=== PATIENT | female | born 1990 | race Caucasian/White ===

== ENCOUNTER 2017-05-02 09:56 | Emergency (ER) | payer BC, OTHER ==
[~2017-05-02] VITALS: Ht 177.8 cm; Wt 63.0 kg
[2017-05-02 10:04] VITALS: TEMP 36.8; Ht 177.8 cm; Wt 63.0 kg
[2017-05-02] MEDS ORDERED: RBX750 PO (10:28)
[2017-05-02] MEDS ORDERED: AMPH20CA3 PO ×2 (10:28)
[2017-05-02] MEDS ORDERED: LEVO75TA PO (10:28)
[2017-05-02 10:39] VITALS: O2SAT 100
[2017-05-02] MEDS ORDERED: SODIUM CHLORIDE 0.9% 500ML 500 ML IV STA (10:41)
[2017-05-02] MEDS ORDERED: KETOROLAC TROMETHAMINE 30 MG/ML VIAL IV STA (10:41)
[2017-05-02 11:13] LABS: BASO % 0.3 %; BASO ABS # 0.02 K/uL (0-0.2); COMPLETE YES; EOS % 0.5 %; HEMATOCRIT 41.2 % (37-47); IG% 0.1 %; LYMPH % 31.6 %; LYMPH ABS # 2.37 K/uL (1.2-3.4); MEAN CELL VOLUME 84.1 fL (80-100); MEAN CORPUSCULAR HEMOGLOBIN 28.6 pg (25-34); MEAN PLATELET VOLUME 9.6 fL (7.4-10.4); MONO % 7.2 %; NEUT % 60.3 %; PLATELET COUNT 323 K/uL (130-400); WHITE BLOOD COUNT 7.49 K/uL (4.8-10.8)
[2017-05-02 11:18] LABS: BLOOD UREA NITROGEN 14 mg/dl (7-18); BUN/CREATININE RATIO 20.2 (10-20); CARBON DIOXIDE 26 mmol/L (21-32); CHLORIDE 105 mmol/L (98-107); CREATININE 0.69 mg/dl (0.60-1.20); GLUCOSE 130 mg/dl (70-99); SODIUM 138 mmol/L (136-145)
--- NOTE | 2017-05-02 11:21 | DIAGNOSTIC IMAGING REPORT ---
CHEST ONE VIEW PORTABLE HISTORY: 26 years-old Female Chest Pain acute atypical chest pain COMPARISON: None available TECHNIQUE: Portable upright AP view of the chest FINDINGS: Cardiomediastinal and hilar silhouettes are within normal limits. There is no pneumothorax, pleural effusion, focal airspace consolidation or overt pulmonary edema. The bones of the chest are grossly intact. IMPRESSION: No acute cardiopulmonary process. The above report was generated using voice recognition software. It may contain grammatical, syntax or spelling errors. Electronically signed by: Carlos Worthy M.D. 05/02/2017 11:20 AM Dictated Date/Time: 05/02/2017 11:19 AM
--- NOTE | 2017-05-02 12:33 | DIAGNOSTIC IMAGING REPORT ---
ULTRASOUND L VENOUS DOPP LOWER EXT UNILAT CLINICAL HISTORY: Left leg swelling COMPARISON STUDY: No previous studies for comparison. FINDINGS: Real-time and color flow Doppler imaging were performed. Flow was seen within the femoral, popliteal and calf veins with no intraluminal thrombus demonstrated. The saphenous vein is patent. IMPRESSION: No evidence of left lower extremity DVT. Electronically signed by: Robson Pedraza M.D. 05/02/2017 12:32 PM Dictated Date/Time: 05/02/2017 12:31 PM
[2017-05-02 13:30] VITALS: BP 142/91; PULSE 79; O2SAT 99
--- NOTE | 2017-05-02 16:43 | EMERGENCY ROOM VISIT NOTE ---
History Report prepared by [facility]: Glenn Rosa Under the Supervision of: Dr. Spenser Faith D.O. First contact with patient: 10:11 Chief Complaint: CHEST PAIN Stated Complaint: CP, SOB, RACING PULSE, CONFUSION History of Present Illness The patient is a 26 year old female who presents to the Emergency Room with complaints of a pressure-like centralized chest pain that began early this morning. She rates her pain a 3/10 in severity. The patient has had a history of heart palpitations that feel irregular for the past 5-10 years. However, she notes that her episodes have increased from twice a year to about once a month. These episodes last a maximum of 4 hours. She recently got checked by her PCP who adjusted her thyroid medications which helped her heart rate improve. She notes that she has also had about 2-3 months of left leg swelling as well. She has a history of lymphedema in her right leg which is hereditary. She denies any other medical problems. Early this morning, she woke up in a similar state, however she was experiencing chest pain too since 3am. She also became short of breath. She denies any jaw or arm pain. Patient denies cancer, diabetes, hypertension, hyperlipidemia, CAD, history of sudden at a young age, and smoking. Patient denies any recent trips, history of immobilization or recent surgery, prior history of DVT, hemoptysis, history of malignancy, history of smoking, or control/estrogen use. She denies any family history of atrial fibrillation or other cardiac rhythm disorders. Source of History: patient Onset: early this morning Position: chest (centralized) Symptom Intensity: 3/10 Quality: pressure Timing: constant Associated Symptoms: + SOB Note: She denies any arm pain or jaw pain. Review of Systems See HPI for pertinent positives & negatives. A total of 10 systems reviewed and were otherwise negative. Past Medical & Surgical Medical Problems: (1) Lymphedema (2) Thyroid disorder Family History Patient reports no known family medical history. Social History Smoking Status: Never Smoker Smokeless Tobacco Use: No Alcohol Use: none Drug Use: none Marital Status: Housing Status: lives with family Current/Historical Medications Scheduled Amphetamine-Dextroamphetamine 20MG (Adderall Xr 20MG), 20 CAP PO DAILY Amphetamine-Dextroamphetamine 20MG (Adderall Xr 20MG), 20 MG PO BID Levothyroxine Sodium (Synthroid), 75 MCG PO DAILY Scheduled PRN Methocarbamol (Methocarbamol), 750 MG PO DAILY PRN for BACK PAIN Allergies Coded Allergies: No Known Allergies (Unverified , 05/02/17) Physical Exam Vital Signs Date Time Temp Pulse Resp B/P (MAP) Pulse Ox O2 Delivery O2 Flow Rate FiO2 05/02/17 13:30 79 20 142/91 99 05/02/17 13:10 86 05/02/17 13:00 85 18 143/103 100 Room Air 05/02/17 12:00 138/95 100 Room Air 05/02/17 10:39 100 Room Air 05/02/17 10:34 100 Room Air 05/02/17 10:32 83 05/02/17 10:04 36.8 88 16 147/97 98 Room Air Physical Exam GENERAL: Sitting up in bed, alert, well appearing, well nourished, no distress, non-toxic EYE EXAM: normal conjunctiva OROPHARYNX: no exudate, no erythema, lips, buccal mucosa, and tongue normal and mucous membranes are moist NECK: supple, no nuchal rigidity, no adenopathy, non-tender LUNGS: Clear to auscultation. Normal chest wall mechanics HEART: no murmurs, S1 normal and S2 normal ABDOMEN: abdomen soft, non-tender, normo-active bowel sounds, no masses, no rebound or guarding. BACK: Back is symmetrical on inspection and there is no deformity, no midline tenderness, no CVA tenderness. SKIN: no rashes and no bruising UPPER EXTREMITIES: upper extremities are grossly normal. Radial pulses are equal bilaterally. LOWER EXTREMITIES: Left calf larger than right. NEURO EXAM: Normal sensorium, cranial nerves II-XII grossly intact, normal speech, no gross weakness of arms, no gross weakness of legs. Medical Decision & Procedures ER Provider Diagnostic Interpretation: Radiology results as stated below per my review and the radiologist's interpretation: ULTRASOUND L VENOUS DOPP LOWER EXT UNILAT CLINICAL HISTORY: Left leg swelling COMPARISON STUDY: No previous studies for comparison. FINDINGS: Real-time and color flow Doppler imaging were performed. Flow was seen within the femoral, popliteal and calf veins with no intraluminal thrombus demonstrated. The saphenous vein is patent. IMPRESSION: No evidence of left lower extremity DVT. Electronically signed by: Robson Pedraza M.D. 05/02/2017 12:32 PM Dictated Date/Time: 05/02/2017 12:31 PM CHEST ONE VIEW PORTABLE HISTORY: 26 years-old Female Chest Pain acute atypical chest pain COMPARISON: None available TECHNIQUE: Portable upright AP view of the chest FINDINGS: Cardiomediastinal and hilar silhouettes are within normal limits. There is no pneumothorax, pleural effusion, focal airspace consolidation or overt pulmonary edema. The bones of the chest are grossly intact. IMPRESSION: No acute cardiopulmonary process. The above report was generated using voice recognition software. It may contain grammatical, syntax or spelling errors. Electronically signed by: Carlos Worthy M.D. 05/02/2017 11:20 AM Dictated Date/Time: 05/02/2017 11:19 AM Laboratory Results 05/02/17 10:25 Red Blood Count 4.90, Mean Corpuscular Volume 84.1, Mean Corpuscular Hemoglobin 28.6, Mean Corpuscular Hemoglobin Concent 34.0, Mean Platelet Volume 9.6, Neutrophils (%) (Auto) 60.3, Lymphocytes (%) (Auto) 31.6, Monocytes (%) (Auto) 7.2, Eosinophils (%) (Auto) 0.5, Basophils (%) (Auto) 0.3, Neutrophils # (Auto) 4.51, Lymphocytes # (Auto) 2.37, Monocytes # (Auto) 0.54, Eosinophils # (Auto) 0.04, Basophils # (Auto) 0.02 05/02/17 10:25 Test 05/02/17 10:25 White Blood Count 7.49 K/uL (4.8-10.8) Red Blood Count 4.90 M/uL (4.2-5.4) Hemoglobin 14.0 g/dL (12.0-16.0) Hematocrit 41.2 % (37-47) Mean Corpuscular Volume 84.1 fL (80-100) Mean Corpuscular Hemoglobin 28.6 pg (25-34) Mean Corpuscular Hemoglobin Concent 34.0 g/dl (32-36) Platelet Count 323 K/uL (130-400) Mean Platelet Volume 9.6 fL (7.4-10.4) Neutrophils (%) (Auto) 60.3 % Lymphocytes (%) (Auto) 31.6 % Monocytes (%) (Auto) 7.2 % Eosinophils (%) (Auto) 0.5 % Basophils (%) (Auto) 0.3 % Neutrophils # (Auto) 4.51 K/uL (1.4-6.5) Lymphocytes # (Auto) 2.37 K/uL (1.2-3.4) Monocytes # (Auto) 0.54 K/uL (0.11-0.59) Eosinophils # (Auto) 0.04 K/uL (0-0.5) Basophils # (Auto) 0.02 K/uL (0-0.2) RDW Standard Deviation 39.2 fL (36.4-46.3) RDW Coefficient of Variation 13.0 % (11.5-14.5) Immature Granulocyte % (Auto) 0.1 % Immature Granulocyte # (Auto) 0.01 K/uL (0.00-0.02) D-Dimer < 190 ug/L FEU (0-500) Anion Gap 7.0 mmol/L (3-11) Est Creatinine Clear Calc Drug Dose 125.0 ml/min Estimated GFR () 141.2 Estimated GFR (Non- 121.8 BUN/Creatinine Ratio 20.2 (10-20) Calcium Level 9.0 mg/dl (8.5-10.1) Troponin I < 0.015 ng/ml (0-0.045) Thyroid Stimulating Hormone (TSH) 2.760 uIu/ml (0.300-4.500) Laboratory results per my review. Medications Administered Medications (Trade) Dose Ordered Sig/Marleny Route Start Time Stop Time Status Last Admin Dose Admin Sodium Chloride 500 ml @ 999 mls/hr Q31M STAT IV 05/02/17 10:41 05/02/17 11:11 DC 05/02/17 11:01 999 MLS/HR Ketorolac Tromethamine (Toradol Inj) 30 mg NOW STAT IV 05/02/17 10:41 05/02/17 10:46 DC 05/02/17 11:02 30 MG ECG Indication: chest pain Rate (beats per minute): 82 Rhythm: sinus rhythm Findings: other (Normal axis, poor baseline in V3) ED Course ED COURSE: Vital signs were reviewed and showed hypertension. The patients medical record was reviewed The above diagnostic studies were performed and reviewed. ED treatments and interventions as stated above. 1011: The patient was evaluated in room B5. A complete history and physical examination was performed. 1041: Ordered Toradol Inj 30 mg IV, Sodium Chloride 500 ml @ 999 mls/hr IV 1315: I reviewed the patient's monitor with the monitor delicatessen goods stock clerk. It showed nothing acute. 1321: Upon reevaluation, the patient is resting. I discussed my findings with the patient and she understands and agrees with the treatment plan. Based on the patients age, coexisting illnesses, exam and lab findings the decision to treat as an outpatient was made. The patient remained stable while under my care. The patient appeared well at the time of discharge. Medical Decision Differential diagnoses includes but is not limited to acute coronary syndrome, myocardial infarction, pericarditis, pulmonary embolus, aortic dissection, pneumonia, pneumothorax, musculoskeletal, shingles, esophageal. Patient is a 26-year-old female who presents to ER for feeling her heart race which has been intermittent since this morning. She notes that she has been getting this at least once or 2 times a week. She has been getting this for several years but normally it only occurs once every 6 months. She denies any syncope. Admits to chest pain since 3 AM this morning. Does have a history of thyroid disorder. She denies any history diabetes, hypertension, hyperlipidemia , CAD or sudden in her family at a young age. She has no PE risk factors with the exception of swelling in her left lower extremity. Duplex was negative. Troponin was negative with pain that has been present for greater than 6 hours. BMP was unremarkable. TSH is normal. D-dimer was negative. Chest x-ray was unremarkable. No ectopy found on Mondor although she did complain of palpitations. She was updated at bedside. Instructed to follow-up with PCP and/or cardiology for possible Holter monitor. Discussed with Pt concerning signs and symptoms to watch out for. Pt was instructed to follow up with their PCP and discussed with the patient their option to return to the ED at anytime for persistent or worsening symptoms. The appropriate anticipatory guidance and out-patient management, including indications for return to the emergency department, were explained at length to the patient and understood. Medication Reconcilliation Current Medication List: was personally reviewed by me Blood Pressure Screening Patient's blood pressure: Elevated blood pressure Blood pressure disposition: Elevated BP felt to be situational Impression Primary Impression: Heart palpitations Scribe Attestation The scribe's documentation has been prepared under my direction and personally reviewed by me in its entirety. I confirm that the note above accurately reflects all work, treatment, procedures, and medical decision making performed by me. Departure Information Dispostion Home / Self-Care Referrals Becky Traore M.D. (PCP) Frank Kwon M.D. Forms HOME CARE DOCUMENTATION FORM, IMPORTANT VISIT INFORMATION Patient Instructions Chest Pain - [facility], ED Palpitations, My [facility] Additional Instructions Please follow up with your primary care doctor with in the next 24 hours. Any worsening of your symptoms, please return to the ED immediately. This includes any fevers greater than 100.4, worsening pain, chest pain, shortness breath, persistent nausea, vomiting, unable to eat or drink, or any other concerning signs or symptoms from your standpoint. Please follow up with cardiology as listed below. You may benefit from a Holter monitor.
== END 2017-05-02 13:32 | disposition home or self-care (01) ==
LOC: C.EDB 09:59
DX: R00.2 Palpitations (principal); Q82.0 Hereditary lymphedema; E07.9 Disorder of thyroid, unspecified; Z79.899 Other long term (current) drug therapy

== ENCOUNTER 2020-06-27 08:46 | Observation (INO) ==
--- NOTE | 2020-06-22 10:31 | Anesthesiology Consultation ---
Date of Service June 22, 2020 Assessment & Plan (1) Encounter for pre-operative examination: COVID Status: As of 06/22 nurse assessment, patient denies travel to endemic area, known exposure/sick contacts, or symptoms of COVID19. Preoperative COVID19 testing completed on 06/21, results pending. S/P SARPE procedure 08/05/18 -- MAC 3, ETT 7.0 grade view II. Smooth induction. "Slow to emerge, extubated to 10LSFM." No complications noted in progress note. H/O PONV (with agitation and 'clawing at face') -- scop patch ordered for AM DOS. HCG AM DOS. Surgeon ordered coag and type and screen. If not done prior to DOS, will order for morning of. Chart Review Chart Review: Acceptable Risk for Surgery and Patient NOT seen in Pre Admission Testing History Surgery Operation Date: 06/27/20 11:55 Proposed Procedures p Lefort I Advancement - Edmar Taylor DMD Height/Weight Height: 5 ft 10 in Weight: 69.4 kg Allergies Allergy/AdvReac Type Severity Reaction Status Date / Time No Known Allergies Allergy Verified 06/22/20 10:11 hemp based lotions Allergy hives Uncoded 06/22/20 10:11 Medications Home Medications Medication Instructions Recorded Confirmed Last Taken acetaminophen [Tylenol Extra 500 mg PO DAILY PRN 07/17/18 06/22/20 08/04/18 21:30 Strength] dextroamphetamine-amphetamine 20 mg PO QAM 07/17/18 06/22/20 08/03/18 22:00 [Adderall XR] methocarbamol 750 mg PO QPM 07/17/18 06/22/20 08/04/18 21:30 tramadol 50 mg PO QPM PRN 07/17/18 06/22/20 08/04/18 21:30 nifedipine 30 mg tablet,extended 30 mg PO QAM 03/31/20 06/22/20 Unknown release Past Medical History Medical History (Updated 06/22/20 @ 10:26 by Sandeep Garces) Attention deficit disorder (ADD) Chronic back pain LUMBAR AREA- TO LEFT History of anesthesia reaction nausea, disorientation, clawing at face. History of bronchitis History of hypothyroidism Iron deficiency anemia Lupus Lymphedema RIGHT LEG-WEARS THIGH HIGH COMPRESSION STOCKING Maxillary hyperplasia Maxillary retrognathism Migraine Raynauds syndrome Past Family History Family History Father Family history of diabetes mellitus Diabetes Grandmother (Maternal) Breast cancer Cancer Mother Hypertension Past Surgical History Surgical History (Updated 06/22/20 @ 10:26 by Sandeep Garces) H/O knee surgery RIGHT ACL RECONSTRUCTION February 2012 H/O palate surgery SARPE 2018, Alex. MAC #3, ETT 7.0, grade view 2. No complications. History of adenoidectomy April 2002 History of bilateral tubal ligation History of section September 2015 History of surgery LeFort I osteotomy -- 07/2018 [facility] History of tonsillectomy April 2002 History of tooth extraction WISDOM TEETH Nausea and vomiting after administration of anesthetic agent Previous back surgery "IUD MIGRATED TO BACK-HAD TO BE REMOVED"-08/2016 History of PONV History of PONV Social History Smoking Status: Never smoker Do You Dip or Chew Tobacco: No Hx Alcohol Use: Yes Alcohol type: wine alcohol intake frequency: a few times a month Hx Substance Use: No substance use type: does not use
[~2020-06-27 08:46] MED LIST: LACTATED RINGER'S 1,000 ML IV SCH; LR 15ML/HR IV SCH; ceFAZolin 1000MG 1,000 MG/7.5 ML SYR IV SCH
[2020-06-27] MEDS ORDERED: SCOPOLAMINE 1.5 MG TDSY TD ONE (08:56)
[2020-06-27 09:34] LABS: Partial Thromboplastin Ratio 0.9; Partial Thromboplastin Time 25.8 Seconds (21.0-31.0); Prothrombin Time 10.3 Seconds (9.0-12.0)
[2020-06-27] MEDS ORDERED: MIDAZOLAM HCL 1 MG/ML 2ML VIAL ONE (09:43)
[2020-06-27] MEDS ORDERED: fentaNYL citrate 100 MCG/2 ML VIAL ONE (09:43)
--- NOTE | 2020-06-27 10:31 | History & Physical Bridge Note ---
Date of Service June 27, 2020 History & Physical Bridge Note I have examined the patient, reviewed the History & Physical and in the interval since the performance of the History & Physical I have noted the following changes of clinical significance: no changes noted. COVID neg OK for planned OG surgery today
[2020-06-27] MEDS ORDERED: TRIAMCINOLONE ACET 0.1% OINT 15 GM TUBE ONE (10:55)
[2020-06-27] MEDS ORDERED: ePHEDrine sulfate 50 MG/ML AMP IV PRN (10:55)
[2020-06-27] MEDS ORDERED: ATROPINE SULFATE 0.1 MG/ML 10ML SYR IV PRN (10:55)
[2020-06-27] MEDS ORDERED: ONDANSETRON INJ 2 MG/ML 2 ML VIAL IV PRN ×2 (10:55→14:45)
[2020-06-27] MEDS ORDERED: PROMETHAZINE HCL 6.25 MG in SODIUM CHLORIDE 0.9% 50 ML IV PRN (10:55)
[2020-06-27] MEDS ORDERED: CHLORHEXIDINE GLUCONATE 0.12% 480 ML ONE (10:58)
[2020-06-27] MEDS ORDERED: PHENYLEPHRINE 1% NA SPR 15 ML BTL STA (11:00)
[2020-06-27] MEDS ORDERED: LIDOCAINE 2%/EPINEPHRINE 1:100,000 1.8 ML CARTRIDGE ONE (11:01)
[2020-06-27] MEDS ORDERED: ONDANSETRON INJ 2 MG/ML 2 ML VIAL ONE (11:44)
[2020-06-27] MEDS ORDERED: LIDOCAINE HCL 2% 2 ML VIAL/AMP(20MG/ML) INFIL ONE (11:44)
[2020-06-27] MEDS ORDERED: ROCURONIUM BROMIDE 10 MG/ML 5 ML VIAL IV ONE (11:44)
[2020-06-27] MEDS ORDERED: DEXAMETHASONE SOD INJ 4 MG/ML VIAL ONE (11:44)
[2020-06-27] MEDS ORDERED: PROPOFOL IV EMULSION 10 MG/ML 20 ML VIAL IV ONE (11:44)
[2020-06-27] MEDS ORDERED: NEOSTIGMINE METHYLSULFATE 5 MG/5 ML SYR ONE (11:44)
[2020-06-27] MEDS ORDERED: GLYCOPYRROLATE 0.2 MG/ML VIAL ONE (11:44)
[2020-06-27] MEDS ORDERED: PHENYLEPHRINE 100MCG/ML 5ML SYR ONE (11:44)
[2020-06-27] MEDS ORDERED: LABETALOL HCL IV 5 MG/ML 20ML IV ONE (12:02)
[2020-06-27] MEDS ORDERED: SURGICEL ABSORB HEMOSTAT 2IN X 14IN TOP ONE (13:03)
--- NOTE | 2020-06-27 14:34 | Post Operative Brief Note ---
PG Immediate Post Op with CF Date of Surgery June 27, 2020 Pre & Post Diagnosis Operation Date: 06/27/20 10:15 Pre-Op Diagnosis: Maxillary Retrognathism Post-Op Diagnosis: Maxillary Retrognathism I identified the patient and participated in the time-out.: Yes Procedure Operation Date: 06/27/20 10:15 Actual Procedures p Lefort I Advancement(Not Applicable) - Edmar Taylor DMD Surgeon Edmar Taylor DMD Utility Lineman none Estimated Blood Loss 50 Findings Consistent with Post-Op Diagnosis
[2020-06-27] MEDS ORDERED: SODIUM CHLORIDE 0.65% NA SOLN 45 ML (OCEAN) PRN (14:45)
[2020-06-27] MEDS ORDERED: OXYMETAZOLINE 0.05% 30 ML BTL PRN (14:45)
[2020-06-27] MEDS ORDERED: LORazepam 1 MG/2 ML VIAL IV PRN (14:45)
[2020-06-27] MEDS: fentaNYL citrate 100 MCG/2 ML VIAL IV PRN ×4 (14:49→15:51)
--- NOTE | 2020-06-27 15:09 | Anesthesiology Progress Note ---
Date of Service June 27, 2020 Anesthesia Post Procedure Vital Signs Vital Signs: Temp Pulse Pulse Resp BP BP Pulse Ox 06/27/20 15:05 60 10 L 116/66 93 06/27/20 14:55 63 12 119/80 96 06/27/20 14:45 82 20 114/68 97 06/27/20 14:35 88 23 123/71 96 06/27/20 14:28 36.7 C 91 H 14 119/68 97 06/27/20 09:24 37 C 71 16 131/96 96 Transfer of Care Handoff Completed per policy Notes Mental Status: alert / awake / arousable Patient Amnestic to Procedure: Yes Nausea / Vomiting: adequately controlled Pain: adequately controlled Airway Patency, RR, SpO2: stable & adequate BP & HR: stable & adequate Hydration State: stable & adequate Anesthetic Complications: no major complications apparent
--- NOTE | 2020-06-27 15:37 | XRay Report ---
XR mandible <4V CLINICAL HISTORY: Status Post-Op Surgery AP Mandibular and Jaw View COMPARISON: None FINDINGS: Note is made of postoperative findings within the maxilla suggestive of maxillary advancem ent. Hardware is intact. There are no unexpected radiopaque foreign bodies. IMPRESSION: Postoperative findings, as described above. ACT 112: Negative or not required by law. Electronically signed by: Jacob So M.D. 06/27/2020 3:36 PM
[2020-06-27] MEDS ORDERED: ACETAMINOPHEN SUSP 160 MG/5 ML BTL PO PRN (17:00)
[2020-06-27] MEDS: D5W AND 1/2NSS + 20MEQ KCL 20 MEQ/1,000 ML BAG IV SCH (17:23)
[2020-06-27] MEDS: DEXAMETHASONE SOD PHOSPHATE 6 MG in SYRINGE 0 ML IV SCH ×2 (17:24→22:45)
[2020-06-27] MEDS: KETOROLAC 30 MG/ML VIAL IV SCH ×2 (17:25→22:45)
[2020-06-27] MEDS: MoRPHine SULFATE 4 MG/ML 1 ML CARP\\VIAL IV PRN ×2 (17:26→20:00)
[2020-06-27] MEDS: ceFAZolin 1000MG 1,000 MG/7.5 ML SYR IV SCH (20:02)
[2020-06-27] MEDS: CHLORHEXIDINE GLUCONATE 0.12% 480 ML MT SCH (20:02)
[2020-06-27] MEDS ORDERED: TRIAMCINOLONE ACET 0.1% OINT 15 GM TUBE EXT SCH (21:00)
[2020-06-28] MEDS: MoRPHine SULFATE 4 MG/ML 1 ML CARP\\VIAL IV PRN ×4 (00:11→10:01)
[2020-06-28] MEDS: D5W AND 1/2NSS + 20MEQ KCL 20 MEQ/1,000 ML BAG IV SCH (02:39)
[2020-06-28] MEDS: ceFAZolin 1000MG 1,000 MG/7.5 ML SYR IV SCH ×2 (02:39→11:10)
[2020-06-28] MEDS: KETOROLAC 30 MG/ML VIAL IV SCH ×2 (05:03→11:10)
[2020-06-28] MEDS: DEXAMETHASONE SOD PHOSPHATE 6 MG in SYRINGE 0 ML IV SCH ×2 (05:03→11:11)
--- NOTE | 2020-06-28 07:11 | Anesthesiology Progress Note ---
Date of Service June 28, 2020 Anesthesia Post Procedure Vital Signs Vital Signs: Temp Pulse Pulse Pulse Resp BP BP 06/28/20 04:00 36.4 C L 84 16 105/50 L 06/28/20 03:00 06/28/20 02:15 65 06/28/20 02:00 06/27/20 23:59 37 C 89 18 117/68 06/27/20 23:00 06/27/20 20:00 37.2 C 20 L 20 116/73 06/27/20 18:43 06/27/20 18:00 06/27/20 17:45 36.8 C 65 20 122/62 06/27/20 17:22 63 06/27/20 17:00 37.0 C 65 20 119/65 06/27/20 16:25 37 C 63 18 06/27/20 16:05 66 12 114/67 06/27/20 15:55 61 12 114/65 06/27/20 15:45 36.6 C 64 14 121/70 06/27/20 15:35 64 12 113/69 06/27/20 15:25 60 10 L 116/65 06/27/20 15:15 68 14 123/73 06/27/20 15:05 60 10 L 116/66 06/27/20 14:55 63 12 119/80 06/27/20 14:45 82 20 114/68 06/27/20 14:35 88 23 123/71 06/27/20 14:28 36.7 C 91 H 14 119/68 06/27/20 09:24 37 C 71 16 131/96 Pulse Ox Pulse Ox 06/28/20 04:00 91 06/28/20 03:00 95 06/28/20 02:15 06/28/20 02:00 95 06/27/20 23:59 97 06/27/20 23:00 97 06/27/20 20:00 94 06/27/20 18:43 95 06/27/20 18:00 95 06/27/20 17:45 93 06/27/20 17:22 06/27/20 17:00 97 95 06/27/20 16:25 98 06/27/20 16:05 96 06/27/20 15:55 96 06/27/20 15:45 97 06/27/20 15:35 96 06/27/20 15:25 96 06/27/20 15:15 95 06/27/20 15:05 93 06/27/20 14:55 96 06/27/20 14:45 97 06/27/20 14:35 96 06/27/20 14:28 97 06/27/20 09:24 96 Pain Intensity Face: Pain Intensity: 4 Notes Mental Status: alert / awake / arousable and participated in evaluation Nausea / Vomiting: adequately controlled Pain: adequately controlled Airway Patency, RR, SpO2: stable & adequate BP & HR: stable & adequate Hydration State: stable & adequate Anesthetic Complications: no major complications apparent
[2020-06-28] MEDS: CHLORHEXIDINE GLUCONATE 0.12% 480 ML MT SCH (08:20)
--- NOTE | 2020-06-28 12:01 | Oral/Maxillofacial Progress Nt ---
Date of Service Post op day # 1 Cori is doing very well this AM Occl is stable, no N/V, pain under control, swelling is less then expected. Reviewed home come and functional elastic position Called her mother and removed home care, diet, band use and follow up. Impression -excellent result from LeFort I surgery OK for D/C today Rx at home RTC 1 week June 28, 2020 Assessment & Plan Admission and Anticipated Discharge Date Admission Date: June 27, 2020 Results & Data ([facility]) Vital Signs (Past 12 Hours) Vital Signs Temp Pulse Pulse Resp BP Pulse Ox Pulse Ox 06/28/20 10:00 97 06/28/20 09:00 96 06/28/20 08:00 37.1 C 67 84 16 115/66 97 96 06/28/20 04:00 36.4 C L 84 16 105/50 L 91 06/28/20 03:00 95 06/28/20 02:15 65 06/28/20 02:00 95 06/27/20 23:59 37 C 89 18 117/68 97 PG Care Time/CCT Total # of Minutes Spent Total Time Spent with Patient: Total time spent is greater than 50% in coordination of care (as documented) at patient's floor/unit and/or counseling patient: Coding Level of Care Code 37678 Subseq Obs Care Lvl 1
--- NOTE | 2020-06-29 22:18 | Operative Report ---
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 OPERATION: LeFort I maxillary osteotomy for advancement with application of direct osseous fixation. DESCRIPTION OF PROCEDURE: After this patient was cleared to undergo general anesthesia, she was brought down to the operating room and placed under general anesthesia via nasotracheal intubation. After adequate anesthesia was obtained, the patient was prepped and draped in the usual manner for maxillary surgery. At this time, a time-out was taken to ensure that we indeed had Cori Faustin in the room, we had the proper equipment and antibiotics were given. Everyone agreed and the operation continued. At this time, sterile dressings were applied around the face. The facial area was scrubbed in the usual manner. At this time, the operation began. Local anesthesia was infiltrated into the maxillary tissues to allow for hemostasis and local anesthetic effect. After an adequate period of time for the anesthetic, the procedure began. Using electrocautery instrument, a large mucobuccal incision was created from the first bicuspid area across the midline to the opposite bicuspid area. It was taken down to the periosteum. The periosteum was now scored. With use of periosteal elevators, I was able to reflect the mucoperiosteal tissue to expose the lateral surface of the maxilla as well as the anterior surface of the maxilla. Great care was taken to avoid any injury to the neurovascular bundles or to the roots of the teeth or base of the nose. Once this was done, I then dissected posteriorly to the tuberosity regions on both right and left side and gauze dressings were applied. While the gauze dressings were in the posterior areas, I turned my attention anteriorly. I used a very careful dissection to reflect the mucoperiosteal tissue off the piriform rim. Once this was done, we had excellent visualization of the maxilla. 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 The previous lateral bone cut was still opened. The healed bone was very thin. The maxilla needed to be advanced 5 mm on the right and 3 on the left. slight rotation to the right. adjusted towards the left side to line up the facial midlines and some posterior impaction was necessary to allow for a better interdigitation of the teeth. With the use of a fiberoptic instrument, I was able to hold the tissue on the right side of the maxilla tight. I now had great visualization. A periosteal elevator was placed in the piriform rim and an osteotomy was made parallel to the occlusal plane 5 mm above the roots of the maxillary, anterior and posterior teeth from the tuberosity to the piriform rim. A similar procedure was carried out on the left side. At this time, a ball curved osteotome was used to osteotomize the nasal septal tissue. A ball curved osteotome was now used to osteotomize the medial aly of the maxillary sinus bilaterally. I now used a curved osteotome and osteotomized the tuberosity from the pterygoid plates bilaterally. At this time, the maxilla was becoming loose. With a sagittal shirt finisher, I was able to place this posteriorly on the right side with some light pressure, I was able to down fracture the maxilla on the right side and then similarly on the left side. When all was said and done, we had an excellent downfracture of the maxilla. It was noted that due to the scarring from the prior surgery, there were some small tears in the mucoperiosteal tissue on the floor of the nose. This was easily repaired with a 3-0 chromic suture and should not have any consequences. At this time, I used rongeurs and rotary instruments to remove any excess bone on the internal aspect of the maxilla, especially around the descending palatine, artery, nerve and veins. Great care was taken to avoid injury to this vessel complex. After careful dissection, I now had the maxilla extremely passive. I was able to move the maxilla up, down, left and right without any restriction. The maxilla had excellent tissue tone secondary to a good blood supply from the greater palatine nerves, arteries and veins as well as the palatal mucoperiosteal tissue. At this time, I trimmed some bone posteriorly. I was very satisfied that the maxilla was downfracture and very passive. At this time, the oropharyngeal throat pack was removed. The oral cavity was irrigated. The preformed surgical appliance was applied to the mandible and the maxilla was easily slipped into place. With the use of the preformed wires on the teeth and using 25 gauge stainless steel wire, 4 wires were placed, 2 on either side to maintain intermaxillary fixation. At this time, the maxillary mandibular complex was rotated superiorly after I was certain that the condyles were well seated within the glenoid fossa. I noted that there were few small interferences that prevented the maxilla from lining up properly. With rotary instruments these were removed. When this was completed, we had excellent advancement and slight impaction of the maxilla with excellent bone to bone contact between the maxillary osteotomy sites. I then trimmed the bone of the nasal septal tissue to prevent any buckling of this. I then vigorously irrigated the maxillary sinuses, made sure that we had no interferences in the positioning of the maxilla. Being satisfied with this, I began the closure. I used a series of 1.5 mm self-tapping self-drilling screws and placed 3 small fixation plates 2 in the piriform rim and 1 in the zygomatic rim posteriorly left side. The right posterior area was so thin from the prior surgical expansion that direct fixation was not possible. When this was complete, I released the intermaxillary fixation and judged the maxilla to be extremely stable with an excellent range of motion. No clicking, popping or deviations and excellent postoperative class 1 occlusion. I adjusted the anterior maxilla area to improve the upper lip position as well as the anatomy of the nasal base. At this time, the operation was complete. The only thing left to do was to do the closure. After I was satisfied that the maxilla was stable and the occlusion was reproducible, I irrigated the maxilla. Bleeding and hemostasis was in great control. Now using a #3 Mersilene suture, I was able to perform a nasal cinch technique by suturing the alar cartilage together in a [id number] pattern to maintain proper anatomical support to the base of the nose. After this was complete, a standard VY closure of the mucoperiosteal tissue of the maxilla was carried out using a 4-0 Vicryl suture. When all was said and done, we had excellent watertight closure of the tissue. The occlusion was reproducible. The patient's facial appearance was excellent and we had good interdigitation of the teeth. The oral cavity was irrigated. An oral gastric tube was passed and the stomach contents were evacuated. At this time, I placed 2 dental elastics in a triangular fashion in the cuspid areas between the upper and lower teeth to ensure stability of the bite. After I was satisfied with this, I will allow the patient to recover in the usual manner. Upon full recovery, the patient was extubated. We had a reproducible occlusion. Once she was extubated, she was brought to the recovery room breathing in satisfactory condition with all vital signs stable. The plan is to admit (observation status)the patient to floor for 23 hr observation and monitor her breathing, monitor her airway, and of course oral intake. At this time, the patient was in the recovery room, she was doing very well. She was breathing nicely. Cori had minimal swelling, minimal bleeding with a reproducible occlusion. I will continue to follow her while she is in the hospital. I attest to the content of the Intraoperative Record and any orders documented therein. Any exceptions are noted below. Surgeon Edmar Taylor, DANIEL Network Control Operators Supervisor Surgeon Edmar Taylor, DANIEL Network Control Operators Supervisor none Estimated Blood Loss 50 Findings Consistent with Post-Op Diagnosis Specimens none Description of Procedure LeFort I advancement I attest to the content of the Intraoperative Record and any orders documented therein. Any exceptions are noted below.
--- NOTE | 2020-06-30 08:47 | Discharge Summary ---
Date of Service June 30, 2020 *NOTICE TO RECEIVING REPUBLICAN/AGENCY This information is strictly Confidential and protected under [place] law. [place] law prohibits you from making any further disclosure of this information unless further disclosure is expressly permitted by the written consent of the person to whom it pertains or is authorized by law. A general authorization for the release of medical or other information is not sufficient for this purpose. Hospital accepts no responsibility if the information is made available to any other person, INCLUDING THE PATIENT. Date of Service June 27, 2020 Discharge Report for Cori Faustin PROCEDURE LeFort I osteotomy for advancement CPT 24649 ICD10 M26.02 Surgical Splint construction CPT 41695 On Jun 27: To OR --Anesthesia administrated LeFort I completed w/o any problems Direct fixation applied Stable occlusion observed. Post Op: To recovery room plan--Transfer to floor for 23 hr observation doing very well in recovery PO good, pain well controlled. Keep overnight as 23 hr observation. Post op day # 1 V.S stable No complaints The surgery went very well, Oral care is good, swelling as expected, very minimal. Occlusion excellent. Tissue tone =healthy Reviewed oral care=irrigation device given and instructed on use. 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 Excellent healing from recent oral surgery Discharge Data Procedures Performed Operation Date: 06/27/20 10:15 Actual Procedures p Lefort I Advancement(Not Applicable) - Edmar Taylor DMD Coding Level of Care Code 57648 OBS Care - Discharge
== END 2020-06-28 12:53 | disposition home or self-care (01) ==
LOC: 2N 08:46 → ASU 08:46